=== PATIENT | male | born 1960 | race Caucasian/White ===

== ENCOUNTER 2017-07-18 09:13 | Day surgery (SDC) | payer BC ==
[~2017-07-18] VITALS: Ht 172.7 cm; Wt 66.5 kg
[~2017-07-18 09:13] MED LIST: ASPI325EC PO; DOXY100 PO; METO50 PO
[2017-07-18] MEDS ORDERED: ATOM40 (09:48)
[2017-07-18] MEDS ORDERED: Azor 10-40 MG1 EACH (09:48)
[2017-07-18] MEDS ORDERED: ASPI325 (09:49)
[2017-07-18] MEDS ORDERED: ATOR40TA (09:50)
[2017-07-18] MEDS ORDERED: AMLO10 (09:50)
== END 2017-07-18 12:17 | disposition home or self-care (01) ==
LOC: ORSCSDS 09:13
PROVIDERS: Internal Medicine Gastroenterology
PROC: 0DBK8ZX Excision of Ascending Colon, Via Natural or Artificial Opening Endoscopic, Diagnostic (ICD-10-PCS; principal; 2017-07-18 10:45)
DX: Z86.010 Personal history of colon polyps (principal); D12.2 Benign neoplasm of ascending colon; K64.1 Second degree hemorrhoids; I10 Essential (primary) hypertension; I25.2 Old myocardial infarction; F17.210 Nicotine dependence, cigarettes, uncomplicated; Z79.899 Other long term (current) drug therapy; Z79.82 Long term (current) use of aspirin
CPT/HCPCS: 88305; J7120